=== PATIENT | female | born 1995 | race Hispanic/Latino ===

== ENCOUNTER 2022-09-29 23:25 | Emergency (ER) | payer OTHER, SELFPAY ==
--- OUTSIDE RECORDS SUMMARY | 2022-09-29 23:33 | XMS REPORT | Continuity of Care Document ---
:1995 Author Organization [facility] t Address [address] [place] [address] [place] [id number] Care Team Providers Name Role Phone No, Pcp [facility] Primary Care Physician Unavailable ALICE CHUN Attending Clinician Unavailable Ramsey Wilhelm DO Attending Clinician JAMIL MCCLAIN Attending Clinician Unavailable Jamil Mcclain MD Attending Clinician Doctor Unassigned, [place] Attending Clinician Unavailable Alice Chun PA-C Attending Clinician Chapito Styles MD Attending Clinician 1, [facility] Attending Clinician Unavailable Lab, [facility] Attending Clinician Unavailable Sherlyn Bernabe Attending Clinician SHERLYN HOBBS Attending Clinician Unavailable MONIQUE POZO Attending Clinician Unavailable CHAPITO STYLES Attending Clinician Unavailable CHAPITO STYLES Attending Clinician Unavailable MARK ANTHONY LANGFORD Attending Clinician Unavailable CHAPITO STYLES Admitting Clinician Unavailable Jamil Mcclain MD Admitting Clinician Chapito Styles MD Admitting Clinician JAMIL MCCLAIN Admitting Clinician Unavailable TERESA JACOBS Admitting Clinician Unavailable Payers Payer Name Policy Type Policy Number Effective Date Expiration Date Nicolás ARAUZS [id number] 2019 HEALTH 00:00:00 Problems Condition Condition Condition Status Onset Resolution Last Treating Co mments Source Name Details Category Date Date Treatment Clinician Date Liveborn Liveborn Disease Active Unive rs infant, of , of 8-15 it y of ortiz or[place]iz 00:[place] , , 00 [place] born in born in [facility] hospital by vaginal by vaginal delivery delivery Encounter Encounter Disease Active Uni vers for for 8-14 ity of elective elective 00:00: [place] induction induction 00 [facility] of labor of labor Sesser Elevated Elevated Disease Active Unive rs blood blood 8-12 ity of pressure pressure 00:00: [place] reading reading 00 [facility] without without Branch diagnosis diagnosis of of hypertensi hypertensi on on Gestationa Gestationa Disease Active U nivers l l 8-12 ity of hypertensi hypertensi 00:[place] on, third on, third 00 [facility] trimester trimester Bran ch Obesity Obesity Disease Active Univers (BMI (BMI 6-24 ity of 30-39.9) 30-39.9) 00:00: [place] 00 [facility] Supervisio Supervisio Disease Active U nivers n of other n of other 6-24 it y of normal normal 00:00: [place] 00 [facility] Disease [facility] [address] Liveborn Liveborn Disease Active Overview: Un aaron infant by by 3-18 IOL; ity of vaginal vaginal 00:00: 39w4d; [place] delivery delivery 00 ; Medica l intact Sesser Anemia, Anemia, Disease Active Univers 3-18 it y of 00:00: [address] 39 weeks 39 weeks Disease Active Unive rs gestation gestation 3-17 ity of of of 00:00: [place] 00 [facility] Multiparit Multiparit Disease Active U nivers y y 8- ity of 00:00: [address] ASCUS with ASCUS with Disease Active Overview : Univers positive positive 01-09 Repeat 1 ity of high risk high risk 00:00: year Cullen mcarthur HPV HPV [facility] Obesity Obesity Disease Active Overview: Univ ers complicati complicati 01-09 ICD10 it y of ng ng 00:00: Diagnosis [place] , , 00 Term Me dical childbirth childbirth [place] [facility] , or , or Utility puerperium puerperium , , antepartum antepartum Supervisio Supervisio Disease Active Overview : Univers n of other n of other 8-27 ICD10 it y of high-risk high-risk 00:00: [place] 00 Term Medi casimiro [place] [facility] Utility Screening Screening Disease Active Uni vers for STD for STD 2-18 ity of (sexually (sexually 00:00[place] transmitte transmitte 00 Me dical d disease) d disease) Br anch Allergies, Adverse Reactions, Alerts Allergy Allergy Status Severity Reaction(s) Onset Inactive Treating Comm ents Source Name Type Date Date Clinician NO KNOWN Drug Active Univers ALLERGIE Class ity of S [facility] NO KNOWN Allergy Active [facility] Social History Social Habit Start Date Stop Date Quantity Comments Source ASSERTION 2019-04-13 [facility] 00:00:00 [facility] Exposure to Not sure [facility] SARS-CoV-2 [place] Medical (event) Branch Alcohol intake 2020-06-02 2020-06-[address] [facility] es 00:00:00 00:00:00 non-drinker of Medical Ce nter alcohol (finding) Tobacco use and 2020-02-14 2020-02-14 Never used Universit y of exposure 00:00:00 00:00:00 [place] [facility] History [facility] Food 2019-12-28 2019-12-28 1 Univers ity of Worry 00:00:00 00:00:00 [place] [facility] History [facility] Food 2019-12-28 2019-12-28 1 Univers ity of Scarcity 00:00:00 00:00:00 [place] [facility] History SDFL 2019-12-28 2019-12-28 2 University o f Transport Med 00:00:00 00:00:00 [place] Medic al Branch History [facility] 2019-12-28 2019-12-28 2 University o f Transport Non-Med 00:00:00 00:00:00 [place] M edical Branch Sex Assigned At [address] [facility] 00:00:00 00:[facility]:00 [facility] Smoking Status Start Date Stop Date Source Never smoker [facility] Medications Ordered Filled Start Stop Current Ordering Indication Dosage Frequency Signature Comments Components Source Medication Medication Date Date Medication? Clinician (SIG) Name Name levonorgest 2019-05 2020- No 1{devic Un aaron reL 0- 10- e} ity of (MIRENA) 18:00: 16:47 [place] IUD 1 00 :00 [employer] Branch levonorgest 2019-05 2020- No 1{devic 1 Device, Univers reL 0- 10- e} Intrauteri ity of (MIRENA) 18:00: 16:47 [place], ONCE, [place] IUD 1 00 :00 1 dose, [employer] Екатерина Branch 02/14/20 at 1300, Routine levonorgest 2019-05 2020- No 1{devic Un a[place] reL 0- 10- e} ity of (MIRENA) 18:00: 16:47 [place] IUD 1 00 :00 [employer] Branch levonorgest 2019-05 2020- No 1{devic 1 Device, Univers reL 0- 10- e} Intrauteri ity of (MIRENA) 18:00: 16:47 ne, ONCE, [place] IUD 1 00 :00 1 dose, [employer] Екатерина Branch 02/14/20 at 1300, Routine 2019-0 Yes [id number] 1{tbl} Take 1 U nivers vitamin 8-20 tablet by ity of w/FA tablet 00:00: mouth [place] 00 daily. Medical Branch 2019-0 Yes [id number] 1{tbl} Take 1 U nivers vitamin 8-20 tablet by ity of w/FA tablet 00:00: mouth [place] 00 daily. Medical Branch 2020-0 Yes [id number] 1{tbl} Take 1 U nivers vitamin 8-20 tablet by ity of w/FA tablet 00:00: mouth [place] 00 daily. Medical Branch 2020-0 Yes [id number] 1{tbl} Take 1 U nivers vitamin 8-20 tablet by ity of w/FA tablet 00:00: mouth [place] 00 daily. Medical Branch 2020-0 Yes [id number] 1{tbl} Take 1 U nivers vitamin 8-20 tablet by ity of w/FA tablet 00:00: mouth [place] 00 daily. Medical Sesser 2020-0 Yes [id number] 1{tbl} Take 1 U nivers vitamin 8-20 tablet by ity of w/FA tablet 00:00: mouth [place] 00 daily. Medical Branch 2020-0 Yes [id number] 1{tbl} Take 1 U nivers vitamin 8-20 tablet by ity of w/FA tablet 00:00: mouth [place] 00 daily. Medical Branch 2020-0 Yes [id number] 1{tbl} Take 1 U nivers vitamin 8-15 tablet by ity of w/FA tablet 00:00: mouth [place] 00 daily. Medical Branch docusate 2020-0 Yes [id number] 240mg Take 1 Un aaron calcium 240 8-15 capsule by it y of mg capsule 00:00: mouth once [place] 00 daily as Medical needed for Branch Constipati on. ferrous 2020-0 Yes [id number] 325mg Take 1 Uni vers sulfate 325 8-15 tablet by ity of mg (65 mg 00:00: mouth 2 [place] iron) 00 (two) Medical tablet times Branch daily. ibuprofen 2019-0 Yes [id number] 600mg Take 1 U nivers 600 mg 8-15 tablet by ity of tablet 00:00: mouth [place] 00 every 6 Medical (six) Branch hours as needed (Pain). Take with food or milk. docusate 2019-0 Yes [id number] 240mg Take 1 Un a[place] calcium 240 8-15 capsule by it y of mg capsule 00:00: mouth once [place] 00 daily as Medical needed for Branch Constipati on. ferrous 2019-0 Yes [id number] 325mg Take 1 Uni vers sulfate 325 8-15 tablet by ity of mg (65 mg 00:00: mouth 2 [place] iron) 00 (two) Medical tablet times Branch daily. ibuprofen 2019-0 Yes [id number] 600mg Take 1 U nivers 600 mg 8-15 tablet by ity of tablet 00:00: mouth [place] 00 every 6 Medical (six) Branch hours as needed (Pain). Take with food or milk. docusate 2019-0 2020- No [id number] 240mg Take 1 U nivers calcium 240 8-15 09-15 capsule by i ty of mg capsule 00:00: 00:00 mouth once [place] 00 :00 daily as Medical needed for Branch Constipati on. ferrous 2019-0 2020- No [id number] 325mg Take 1 Un a[place] sulfate 325 8-15 09-15 tablet by it y of mg (65 mg 00:00: 00:00 mouth 2 [place] iron) 00 :00 (two) Medical tablet times Branch daily. ibuprofen 2019-0 2020- No [id number] 600mg Take 1 Univers 600 mg 8-15 tablet by ity of tablet 00:00: 00:00 mouth [place] 00 :00 every 6 Medical (six) Branch hours as needed (Pain). Take with food or milk. 2019-0 2020- No [id number] 1{tbl} Take 1 Univers vitamin 815 08-20 tablet by ity of w/FA tablet 00:00: 00:00 [place] 00 :00 daily. Medical Branch rho(D) 2019-0 Yes 300ug 300 mcg, Univer s immune 8-14 Intramuscu ity of globulin 21:54: lar, ONCE, [place] (RHOGAM) 06 For 1 Medical syringe 300 dose, Branch mcg Conditiona l, Routine HYDROcodone 2019-0 Yes 1{tbl} 1 tablet, Univers -acetaminop 814 Oral, ity of hen (NORCO 21:53: Q6HPRN, [place] 5) 5-325 mg 49 Starting Medi casimiro tablet 1 Fri Branch tablet 12/28/19 at 1653, Until Discontinu ed, Routine, Pain (scale 7-10) ibuprofen 2019-0 Yes 600mg 600 mg, Univ ers (IBU) 8-14 Oral, ity of tablet 600 21:53: Q6HPRN, [place] mg 49 Starting Medical Fri Branch 12/28/19 at 1653, Until Discontinu ed, Routine, Pain (scale 4-6) acetaminoph 2019-0 Yes 650mg 650 mg, Un aaron en 8-14 Oral, ity of (TYLENOL) 21:53: Q6HPRN, [place] tablet 650 49 Starting Medic al mg Fri Branch 12/28/19 at 1653, Until Discontinu ed, Routine, Pain (scale 1-3) diphenhydrA 2020-0 Yes 25mg 25 mg, Univ ers MINE 8-14 Oral, ity of (BENADRYL) 21:53: Q6HPRN, [place] tablet 25 49 Starting Medica l mg Fri Branch 12/28/19 at 1653, Until Discontinu ed, Routine, Sleep, Itching ondansetron 2020-0 Yes 4mg 4 mg, Slow Univers (ZOFRAN 12-27 IV Push, ity of (PF)) 21:53: Q8HPRN, [place] injection 4 49 Starting Medi casimiro mg Fri Branch 12/28/19 at 1653, Until Discontinu ed, Routine, Nausea and Vomiting (N/V) simethicone 2020-0 Yes 160mg 160 mg, Un aaron (GAS RELIEF 12-27 Oral, ity of (SIMETHICON 21:53: PC+HSPRN, [place] E)) 49 Starting Medical chewable Fri Branch tablet 160 12/28/19 at mg 1653, Until Discontinu ed, Routine, Gas docusate 2020-0 Yes 240mg 240 mg, Unive rs calcium 8- Oral, ity of (SURFAK) 21:53: QDAILYPRN, [place] capsule 240 49 Starting Medi casimiro mg Fri Branch 12/28/19 at 1653, Until Discontinu ed, Routine, Constipati on magnesium 2020-0 Yes 30mL 30 mL, Univer s hydroxide 12-27 Oral, ity of (MILK OF 21:53: QDAILYPRN, [place] MAGNESIA) 49 Starting Medica l 400 mg/5 mL Fri Branch suspension 12/28/19 at 30 mL 3, Until Discontinu ed, Routine, Constipati on benzocaine- 2020-0 Yes Topical, Un aaron menthol 12-27 PRN, ity of (DERMOPLAST 21:53: [place] 20-0.5 % 49 Tue Medical topical 12/28/19 at Branch spray 1653, Until Discontinu ed, Routine, Perineum discomfort LR 1000 mL 0 2020- No at 125 Univ ers + oxytocin 12-2714 mL/hr, IV ity of 20 units IV 16:15: 17:39 Infusion, [place] Solution 00 :00 ONCE, 1 Medical dose, [facility] Branch 12/28/19 at 1115, Routine FENTanyl PF 2019-0 2020- No 100ug 100 mcg, Univers (SUBLIMAZE 12-27 Slow IV ity o f (PF)) 12:31: 21:54 Push, [place] injection 01 :07 Q1HPRN, Medical 100 mcg Starting Branch 12/28/19 at 0731, Until 12/28/19 at 1654, Routine, contractio n pain without an epidural and SVE < 8 cm and Cat I strip LR 1000 mL 2020-0 2020- No 2mU/min at 6-120 Univers + oxytocin 12-27 08-14 mL/hr, IV ity of 20 units IV 10:28: 21:54 Infusion, [place] Solution 38 :07 TITRATE, Medical Starting Branch Tue12/28/19 at 0528, Until Tue12/28/19 at 1654, YORDAN D5W-LR IV 2020-0 2020- No 1000mL at 125 Uni vers infusion 12-27 08-14 mL/hr, IV ity o f 1,000 mL 09:30: 21:54 Infusion, [place] 00 :07 CONTINUOUS Medical , Starting Branch Tue12/28/19 at 0430, Until Tue12/28/19 at 1654, Routine famotidine 2020-0 Yes [id number] 20mg Take 1 Univers 20 mg 7-13 tablet by ity of tablet 00:00: mouth [address] [place] [address] (two) Medical times Branch daily. hydrOXYzine 2020-0 Yes [id number] 25mg Take 1 Univers 25 mg 7-13 tablet by ity of tablet 00:00: mouth [place] 00 every 6 Medical (six) Branch hours as needed for Itching. famotidine 2020-0 Yes [id number] 20mg Take 1 Univers 20 mg 7-13 tablet by ity of tablet 00:00: mouth [address] [place] [address] (two) Medical times Branch daily. hydrOXYzine 2020-0 Yes [id number] 25mg Take 1 Univers 25 mg 7-13 tablet by ity of tablet 00:00: mouth [place] 00 every 6 Medical (six) Branch hours as needed for Itching. famotidine 2020-0 Yes [id number] 20mg Take 1 Univers 20 mg 7-13 tablet by ity of tablet 00:00: mouth 2 [place] (two) Medical times Branch daily. hydrOXYzine 2020-0 Yes [id number] 25mg Take 1 Univers 25 mg 7-13 tablet by ity of tablet 00:00: mouth [place] 00 every 6 Medical (six) Branch hours as needed for Itching. famotidine 2020-0 Yes [id number] 20mg Take 1 Univers 20 mg 7-13 tablet by ity of tablet 00:00: mouth 2 [place] [address] (two) Medical times Branch daily. hydrOXYzine 2020-0 Yes [id number] 25mg Take 1 Univers 25 mg 7-13 tablet by ity of tablet 00:00: mouth [place] 00 every 6 Medical (six) Branch hours as needed for Itching. famotidine 2020-0 Yes [id number] 20mg Take 1 Univers 20 mg 7-13 tablet by ity of tablet 00:00: mouth 2 [place] 00 (two) Medical times Branch daily. hydrOXYzine 2020-0 Yes [id number] 25mg Take 1 Univers 25 mg 7-13 tablet by ity of tablet 00:00: mouth [place] 00 every 6 Medical (six) Branch hours as needed for Itching. famotidine 2020-0 Yes [id number] 20mg Take 1 Univers 20 mg 7-13 tablet by ity of tablet 00:00: mouth 2 [place] 00 (two) Medical times Branch daily. hydrOXYzine 2020-0 Yes [id number] 25mg Take 1 Univers 25 mg 7-13 tablet by ity of tablet 00:00: mouth [place] 00 every 6 Medical (six) Branch hours as needed for Itching. famotidine 2020-0 Yes [id number] 20mg Take 1 Univers 20 mg 7-13 tablet by ity of tablet 00:00: mouth 2 [place] 00 (two) Medical times Branch daily. hydrOXYzine 2020-0 Yes [id number] 25mg Take 1 Univers 25 mg 7-13 tablet by ity of tablet 00:00: mouth [place] 00 every 6 Medical (six) Branch hours as needed for Itching. famotidine 2020-0 2020- No [id number] 20mg Take 1 Univers 20 mg 7-13 08-15 tablet by ity of tablet 00:00: 00:00 mouth 2 [place] 00 :00 (two) Medical times Branch daily. hydrOXYzine 2020-0 2020- No [id number] 25mg Take 1 Univers 25 mg 7-13 08-15 tablet by ity of tablet 00:00: 00:00 mouth [place] 00 :00 every 6 Medical (six) Branch hours as needed for Itching. 2017-0 Yes 1{tbl} QD Take 1 [facility]FERR 2-18 tablet by Jonah JACKSON FUM/FA 11:31: mouth Medica l ( 52 daily. Center VITAMIN W/IRON-CHARLY TE) 27 mg iron- 800 mcg Tab docusate 2015-0 Yes 240mg Take 1 Cap Un aaron calcium 3-19 by mouth ity of (SURFAK) 00:00: once daily [place] 240 mg 00 as needed Medical capsule for Branch Constipati on. ferrous 2016-0 Yes 325mg Take 1 Tab Uni vers sulfate 325 3-19 by mouth 3 it y of mg (65 mg 00:00: (three) [place] iron) 00 times Medical tablet daily with Branch meals. docusate 2016-0 Yes 240mg Take 1 Cap [place] calcium 3-19 by mouth ity of (SURFAK) 00:00: once daily [place] 240 mg 00 as needed Medical capsule for Branch Constipati on. ferrous 2016-0 Yes 325mg Take 1 Tab Uni vers sulfate 325 3-19 by mouth 3 it y of mg (65 mg 00:00: (three) [place] iron) 00 times Medical tablet daily with Branch meals. docusate 2016-0 Yes 240mg Take 1 Cap Un a[place] calcium 3-19 by mouth ity of (SURFAK) 00:00: once daily [place] 240 mg 00 as needed Medical capsule for Branch Constipati on. ferrous 2016-0 Yes 325mg Take 1 Tab Uni vers sulfate 325 3-19 by mouth 3 it y of mg (65 mg 00:00: (three) [place] iron) 00 times Medical tablet daily with Branch meals. docusate 2016-0 Yes 240mg Take 1 Cap [place] calcium 3-19 by mouth ity of (SURFAK) 00:00: once daily [place] 240 mg 00 as needed Medical capsule for Branch Constipati on. ferrous 2016-0 Yes 325mg Take 1 Tab Uni vers sulfate 325 3-19 by mouth 3 it y of mg (65 mg 00:00: (three) [place] iron) 00 times Medical tablet daily with Branch meals. docusate 2016-0 Yes 240mg Take 1 Cap [place] a[place] calcium 3-19 by mouth ity of (SURFAK) 00:00: once daily [place] 240 mg 00 as needed Medical capsule for Branch Constipati on. docusate 2016-0 Yes 240mg Take 1 Cap Un a[place] calcium 3-19 by mouth ity of (SURFAK) 00:00: once daily [place] 240 mg 00 as needed Medical capsule for Branch Constipati on. ferrous 2016-0 Yes 325mg Take 1 Tab Uni vers sulfate 325 3-19 by mouth 3 it y of mg (65 mg 00:00: (three) [place] iron) 00 times Medical tablet daily with Branch meals. ferrous 2016-0 Yes 325mg Take 1 Tab Uni vers sulfate 325 3-19 by mouth 3 it y of mg (65 mg 00:00: (three) [place] iron) 00 times Medical tablet daily with Branch meals. docusate 2016-0 Yes 240mg Take 1 Cap [place] calcium 3-19 by mouth ity of (SURFAK) 00:00: once daily [place] 240 mg 00 as needed Medical capsule for Branch Constipati on. ibuprofen 2016-0 Yes 600mg Take 1 Tab U nivers (MOTRIN) 3-19 by mouth ity of 600 mg 00:00: every 6 [place] tablet 00 (six) Medical hours as Branch needed for Pain (scale 4-6). Take with food or milk. ferrous 2016-0 Yes 325mg Take 1 Tab Uni vers sulfate 325 3-19 by mouth 3 it y of mg (65 mg 00:00: (three) [place] iron) 00 times Medical tablet daily with Branch meals. docusate 2016-0 Yes 240mg Take 1 Cap [place] calcium 3-19 by mouth ity of (SURFAK) 00:00: once daily [place] 240 mg 00 as needed Medical capsule for Branch Constipati on. ferrous 2016-0 Yes 325mg Take 1 Tab Uni vers sulfate 325 3-19 by mouth 3 it y of mg (65 mg 00:00: (three) [place] iron) 00 times Medical tablet daily with Branch meals. docusate 2016-0 Yes 240mg Take 1 Cap Un a[place] calcium 3-19 by mouth ity of (SURFAK) 00:00: once daily [place] 240 mg 00 as needed Medical capsule for Branch Constipati on. ferrous 2016-0 Yes 325mg Take 1 Tab Uni vers sulfate 325 3-19 by mouth 3 it y of mg (65 mg 00:00: (three) [place] iron) 00 times Medical tablet daily with Branch meals. docusate 2016-0 Yes 240mg Take 1 Cap Un a[place] calcium 3-19 by mouth ity of (SURFAK) 00:00: once daily [place] 240 mg 00 as needed Medical capsule for Branch Constipati on. ferrous 2016-0 Yes 325mg Take 1 Tab Uni vers sulfate 325 3-19 by mouth 3 it y of mg (65 mg 00:00: (three) [place] iron) 00 times Medical tablet daily with Branch meals. docusate 2016-0 Yes 240mg Take 1 Cap Un a[place] calcium 3-19 by mouth ity of (SURFAK) 00:00: once daily [place] 240 mg 00 as needed Medical capsule for Branch Constipati on. ferrous 2016-0 Yes 325mg Take 1 Tab Uni vers sulfate 325 3-19 by mouth 3 it y of mg (65 mg 00:00: (three) [place] iron) 00 times Medical tablet daily with Branch meals. docusate 2016-0 Yes 240mg Take 1 Cap Un a[place] calcium 3-19 by mouth ity of (SURFAK) 00:00: once daily [place] 240 mg 00 as needed Medical capsule for Branch Constipati on. ferrous 2016-0 Yes 325mg Take 1 Tab Uni vers sulfate 325 3-19 by mouth 3 it y of mg (65 mg 00:00: (three) [place] iron) 00 times Medical tablet daily with Branch meals. docusate 2016-0 Yes 240mg Take 1 Cap Un a[place] calcium 3-19 by mouth ity of (SURFAK) 00:00: once daily [place] 240 mg 00 as needed Medical capsule for Branch Constipati on. ferrous 2016-0 Yes 325mg Take 1 Tab Uni vers sulfate 325 3-19 by mouth 3 it y of mg (65 mg 00:00: (three) [place] iron) 00 times Medical tablet daily with Branch meals. docusate 2016-0 Yes 240mg Take 1 Cap Un a[place] calcium 3-19 by mouth ity of (SURFAK) 00:00: once daily [place] 240 mg 00 as needed Medical capsule for Branch Constipati on. ferrous 2016-0 Yes 325mg Take 1 Tab Uni vers sulfate 325 3-19 by mouth 3 it y of mg (65 mg 00:00: (three) [place] iron) 00 times Medical tablet daily with Branch meals. docusate 2016-0 Yes 240mg Take 1 Cap Un a[place] calcium 3-19 by mouth ity of (SURFAK) 00:00: once daily [place] 240 mg 00 as needed Medical capsule for Branch Constipati on. ferrous 2016-0 Yes 325mg Take 1 Tab Uni vers sulfate 325 3-19 by mouth 3 it y of mg (65 mg 00:00: (three) [place] iron) 00 times Medical tablet daily with Branch meals. docusate 2016-0 Yes 240mg Take 1 Cap Un a[place] calcium 3-19 by mouth ity of (SURFAK) 00:00: once daily [place] 240 mg 00 as needed Medical capsule for Branch Constipati on. ferrous Yes 325mg Take 1 Tab Uni vers sulfate 325 3-19 by mouth 3 it y of mg (65 mg 00:00: (three) [place] iron) 00 times Medical tablet daily with Branch meals. docusate 2020- No 240mg Take 1 Cap U nivers calcium 3-19 08-15 by mouth ity of (SURFAK) 00:00: 00:00 once daily [place] 240 mg 00 :00 as needed Medical capsule for Branch Constipati on. ferrous 2019- No 325mg Take 1 Tab Un aaron sulfate 325 3-19 08-15 by mouth 3 i ty of mg (65 mg 00:00: 00:00 (three) [place] iron) 00 :00 times Medical tablet daily with Branch meals. ibuprofen 2019- No 600mg Take 1 Tab Univers (MOTRIN) 3-19 06-24 by mouth ity of 600 mg 00:00: 00:00 every 6 [place] tablet 00 :00 (six) Medical hours as Branch needed for Pain (scale 4-6). Take with food or milk. Yes 1{tbl} Take 1 Tab U nivers vitamin 7-10 by mouth ity of w/FA 00:00: daily. [place] (PRENATABS 00 Medical RX) tablet Branch Yes 1{tbl} Take 1 Tab U nivers vitamin 7-10 by mouth ity of w/FA 00:00: daily. [place] (PRENATABS 00 Medical RX) tablet Branch Yes 1{tbl} Take 1 Tab U nivers vitamin 7-10 by mouth ity of w/FA 00:00: daily. [place] (PRENATABS 00 Medical RX) tablet Branch Yes 1{tbl} Take 1 Tab U nivers vitamin 7-10 by mouth ity of w/FA 00:00: daily. [place] (PRENATABS 00 Medical RX) tablet Branch Yes 1{tbl} Take 1 Tab U nivers vitamin 7-10 by mouth ity of w/FA 00:00: daily. [place] (PRENATABS 00 Medical RX) tablet Branch Yes 1{tbl} Take 1 Tab U nivers vitamin 7-10 by mouth ity of w/FA 00:00: daily. [place] (PRENATABS 00 Medical RX) tablet Branch Yes 1{tbl} Take 1 Tab U nivers vitamin 7-10 by mouth ity of w/FA 00:00: daily. [place] (PRENATABS 00 Medical RX) tablet Branch Yes 1{tbl} Take 1 Tab U nivers vitamin 7-10 by mouth ity of w/FA 00:00: daily. [place] (PRENATABS 00 Medical RX) tablet Branch Yes 1{tbl} Take 1 Tab U nivers vitamin 7-10 by mouth ity of w/FA 00:00: daily. [place] (PRENATABS 00 Medical RX) tablet Branch Yes 1{tbl} Take 1 Tab U nivers vitamin 7-10 by mouth ity of w/FA 00:00: daily. [place] (PRENATABS 00 Medical RX) tablet Branch Yes 1{tbl} Take 1 Tab U nivers vitamin 7-10 by mouth ity of w/FA 00:00: daily. [place] (PRENATABS 00 Medical RX) tablet Branch Yes 1{tbl} Take 1 Tab U nivers vitamin 7-10 by mouth ity of w/FA 00:00: daily. [place] (PRENATABS 00 Medical RX) tablet Branch Yes 1{tbl} Take 1 Tab U nivers vitamin 7-10 by mouth ity of w/FA 00:00: daily. [place] (PRENATABS 00 Medical RX) tablet Branch Yes 1{tbl} Take 1 Tab U nivers vitamin 7-10 by mouth ity of w/FA 00:00: daily. [place] (PRENATABS 00 Medical RX) tablet Branch Yes 1{tbl} Take 1 Tab U nivers vitamin 7-10 by mouth ity of w/FA 00:00: daily. [place] (PRENATABS 00 Medical RX) tablet Branch Yes 1{tbl} Take 1 Tab U nivers vitamin 7-10 by mouth ity of w/FA 00:00: daily. [place] (PRENATABS 00 Medical RX) tablet Branch 2020- No 1{tbl} Take 1 Tab Univers vitamin 7-10 08-15 by mouth ity of w/FA 00:00: 00:00 daily. [place] (PRENATABS 00 :00 Medical RX) tablet Branch Immunizations Ordered Filled Immunization Date Status Comments [facility] e Immunization Name Name TDAP 2015-07-16 Completed University of 00:00:00 [place] [facility] TDAP 2015-07-16 Completed University of 00:00:00 [place] [facility] TDAP 2015-07-16 Completed University of 00:00:00 [place] [facility] TDAP 2015-07-16 Completed University of 00:00:00 [place] [facility] TDAP 2015-07-16 Completed University of 00:00:00 [place] [facility] TDAP 2015-07-16 Completed University of 00:00:00 [facility] TDAP 2015-07-16 Completed University of 00:00:00 [facility] TDAP 2015-07-16 Completed University of 00:00:00 [facility] TDAP 2015-07-16 Completed University of 00:00:00 [facility] TDAP 2015-07-16 Completed University of 00:00:00 [facility] TDAP 2015-07-16 Completed University of 00:00:00 [facility] TDAP 2015-07-16 Completed University of 00:00:00 [facility] TDAP 2015-07-16 Completed University of 00:00:00 [facility] TDAP 2015-07-16 Completed University of 00:00:00 [facility] TDAP 2015-07-16 Completed University of 00:00:00 [facility] TDAP 2015-07-16 Completed University of 00:00:00 [facility] TDAP 2015-07-16 Completed University of 00:00:00 [facility] TDAP 2015-07-16 Completed University of 00:00:00 [facility] TDAP 2015-07-16 Completed University of 00:00:00 [facility] TDAP 2015-07-16 Completed University of 00:00:00 [facility] TDAP 2015-07-16 Completed University of 00:00:00 [facility] TDAP 2015-07-16 Completed University of 00:00:00 [facility] TDAP 2015-07-16 Completed University of 00:00:00 [facility] TDAP 2015-07-16 Completed University of 00:00:00 [facility] Td 2007-12-27 Completed University of 00:00:00 [facility] Td 2007-12-27 Completed University of 00:00:00 [facility] Td 2007-12-27 Completed University of 00:00:00 [facility] Td 2007-12-27 Completed University of 00:00:00 [facility] Td 2007-12-27 Completed University of 00:00:00 [facility] Td 2007-12-27 Completed University of 00:00:00 [facility] Td 2007-12-27 Completed University of 00:00:00 [facility] Td 2007-12-27 Completed University of 00:00:00 [facility] Td 2007-12-27 Completed University of 00:00:00 [facility] Td 2007-12-27 Completed University of 00:00:00 [facility] Td 2007-12-27 Completed University of 00:00:00 [facility] Td 2007-12-27 Completed University of 00:00:00 [facility] Td 2007-12-27 Completed University of 00:00:00 [facility] Td 2007-12-27 Completed University of 00:00:00 [facility] Td 2007-12-27 Completed University of 00:00:00 [facility] Td 2007-12-27 Completed University of 00:00:00 [facility] Td 2007-12-27 Completed University of 00:00:00 [facility] Td 2007-12-27 Completed University of 00:00:00 [facility] Td 2007-12-27 Completed University of 00:00:00 [facility] Td 2007-12-27 Completed University of 00:00:00 [facility] Td 2007-12-27 Completed University of 00:00:00 [facility] Td 2007-12-27 Completed University of 00:00:00 [facility] Td 2007-12-27 Completed University of 00:00:00 [facility] Td 2007-12-27 Completed University of 00:00:00 [facility] Vital Signs Vital Name Observation Time Observation Value Comments Source Systolic blood 2020-02-14 15:55:00 121 mm[Hg] Univer sity of pressure [facility] Diastolic blood 2020-02-14 15:55:00 79 mm[Hg] Unive rsity of pressure [facility] Heart rate 2020-02-14 15:55:00 66 /min Universi ty [facility] Body temperature 2020-02-14 15:55:00 36.67 [place] Univ ersity of [facility] Respiratory rate 2020-02-14 15:55:00 18 /min [facility] Body height 2020-02-14 15:55:00 152.4 cm Universi ty of [facility] [place] [facility] Body weight 2020-02-14 15:55:00 73.936 kg Universi ty of [facility] BMI 2020-02-14 15:55:00 31.83 kg/m2 Universi ty of [facility] Systolic blood 2020-01-29 21:58:00 109 mm[Hg] Univer sity of pressure [facility] Diastolic blood 2020-01-29 21:58:00 71 mm[Hg] Unive rsity of pressure [facility] Heart rate 2020-01-29 21:58:00 78 /min Universi ty of [facility] Body temperature 2020-01-29 21:58:00 36.89 [place] Univ ersity of [facility] Respiratory rate 2020-01-29 21:58:00 18 /min Univ ersity of [facility] Body height 2020-01-29 21:58:00 152.4 cm Universi ty of [facility] Body weight 2020-01-29 21:58:00 73.483 kg Universi ty of [facility] BMI 2020-01-29 21:58:00 31.64 kg/m2 Universi ty of [facility] Systolic blood 2019-12-29 14:45:00 140 mm[Hg] Univer sity of pressure [facility] Diastolic blood 2019-12-29 14:45:00 86 mm[Hg] Unive rsity of pressure [facility] Heart rate 2019-12-29 14:45:00 71 /min Universi ty of [facility] Body temperature 2019-12-29 13:30:00 36.67 [place] Univ ersity of [facility] Respiratory rate 2019-12-29 13:30:00 18 /min Univ ersity of [facility] Oxygen saturation in 2019-12-29 09:15:00 99 /min [facility] Arterial blood by [facility] Pulse oximetry Branch Body height 2019-12-28 09:00:00 152.4 cm Universi ty of [facility] Body weight 2019-12-28 09:00:00 82.192 kg Universi ty of [facility] BMI 2019-12-28 09:00:00 35.39 kg/m2 Universi ty of [facility] Systolic blood 2019-12-26 21:30:00 136 mm[Hg] Univer sity of pressure [facility] Diastolic blood 2019-12-26 21:30:00 77 mm[Hg] Unive rsity of pressure [facility] Heart rate 2019-12-26 21:30:00 69 /min Universi ty of [facility] Respiratory rate 2019-12-26 21:30:00 18 /min Univ ersity of [facility] Oxygen saturation in 2019-12-26 21:30:00 100 /min University of Arterial blood by [facility] Pulse oximetry Branch Body temperature 2019-12-26 20:25:00 36.89 [place] Univ ersity of [facility] Body height 2019-12-26 20:25:00 152.4 cm Universi ty of [facility] Body weight 2019-12-26 20:25:00 82.555 kg Universi ty of [facility] BMI 2019-12-26 20:25:00 35.54 kg/m2 Universi ty of [facility] Systolic blood 2019-12-26 19:12:00 140 mm[Hg] Univer sity of pressure [facility] Diastolic blood 2019-12-26 19:12:00 91 mm[Hg] Unive rsity of pressure [facility] Heart rate 2019-12-26 18:44:00 73 /min Universi ty of [facility] Body temperature 2019-12-26 18:44:00 36.89 [place] Univ ersity of [facility] Respiratory rate 2019-12-26 18:44:00 18 /min Univ ersity of [facility] Body height 2019-12-26 18:44:00 152.4 cm Universi ty of [facility] Body weight 2019-12-26 18:44:00 83.008 kg Universi ty of [facility] BMI 2019-12-26 18:44:00 35.74 kg/m2 Universi ty [facility] Heart rate 2019-12-04 17:00:00 85 /min Universi ty of [facility] Oxygen saturation in 2019-12-04 17:00:00 100 /min University of Arterial blood by [facility] Pulse oximetry Branch Systolic blood 2019-12-04 16:41:00 134 mm[Hg] Univer sity of pressure [facility] Diastolic blood 2019-12-04 16:41:00 90 mm[Hg] Unive rsity of pressure [facility] Respiratory rate 2019-12-04 16:41:00 18 /min Univ ersity of [facility] Body height 2019-12-04 16:41:00 152.4 cm Universi ty of [facility] Body weight 2019-12-04 16:41:00 78.654 kg Universi ty of [facility] BMI 2019-12-04 16:41:00 33.86 kg/m2 Universi ty of [facility] Systolic blood 2019-11-26 13:49:00 131 mm[Hg] Univer sity of pressure [facility] Diastolic blood 2019-11-26 13:49:00 88 mm[Hg] Unive rsity of pressure [facility] Heart rate 2019-11-26 13:49:00 66 /min Universi ty of [facility] Body temperature 2019-11-26 13:49:00 36.72 [place] Univ ersity of [facility] Respiratory rate 2019-11-26 13:49:00 18 /min Univ ersity of [facility] Body height 2019-11-26 13:49:00 152.4 cm Universi ty of [facility] Body weight 2019-11-26 13:49:00 78.926 kg Universi ty of [facility] BMI 2019-11-26 13:49:00 33.98 kg/m2 Universi ty of [facility] Systolic blood 2019-11-07 15:32:00 125 mm[Hg] Univer sity of pressure [facility] Diastolic blood 2019-11-07 15:32:00 87 mm[Hg] Unive rsity of pressure [facility] Heart rate 2019-11-07 15:32:00 104 /min Universi ty of [facility] Body temperature 2019-11-07 15:32:00 36.72 [place] Univ ersity of [facility] Respiratory rate 2019-11-07 15:32:00 18 /min Univ ersity of [facility] Body height 2019-11-07 15:32:00 152.4 cm Universi ty of [facility] Body weight 2019-11-07 15:32:00 79.017 kg Universi ty of [facility] BMI 2019-11-07 15:32:00 34.02 kg/m2 Universi ty of [facility] Systolic blood 2019-11-05 01:45:00 131 mm[Hg] Univer sity of pressure [facility] Diastolic blood 2019-11-05 01:45:00 76 mm[Hg] Unive rsity of pressure [facility] Heart rate 2019-11-05 01:45:00 89 /min [facility] Oxygen saturation in 2019-11-05 01:40:00 100 /min [facility] Arterial blood by [facility] Pulse oximetry [place] Body temperature 2019-11-05 01:00:00 37.11 [place] [facility] Respiratory rate 2019-11-05 01:00:00 18 /min [facility] Body height 2019-11-05 01:00:00 152.4 cm [facility] Body weight 2019-11-05 01:00:00 79.833 kg [facility] BMI 2019-11-05 01:00:00 34.37 kg/m2 [facility] Procedures Procedure Date / Time Performing Clinician Source Performed [facility] ULTRAS[facility] 2020-02-14 05:01:00 Doctor Unassigned, No [facility] POCT TEST 2020-02-14 00:00:00 Jamil Mcclain [facility] CBC WITH DIFF 2019-12-29 09:12:00 [facility] VENOUS CORD GAS 2019-12-28 16:09:00 Sarahi [facility] SGOT (ASPARTATE AMINO 2019-12-28 10:13:00 Jamil Mcclain [facility]) Medical Branch CREATININE 2019-12-28 10:13:00 Sarahi [facility] ALANINE AMINO 2019-12-28 10:13:00 Sarahi [facility] TRANSFERASE(SGPT Medical Branch LACTATE DEHYDROGENASE 2019-12-28 10:13:00 Sarahi [facility] URIC ACID 2019-12-28 10:13:00 Sarahi [facility] CBC WITH DIFF 2019-12-28 10:13:00 Sarahi [facility] URINALYSIS 2019-12-28 10:13:00 Sarahi [facility] HEPATITIS B SURFACE 2019-12-28 10:13:00 Jamil Mcclain [facility] ADC OR JIM ONLY - 2019-12-28 10:13:00 Mcclain, Jamil Cam [facility] RPR Medical Branch PROTEIN CREAT RATIO 2019-12-28 10:13:00 Jamil [facility]clain [facility] URINE RANDOM Medical Branch HIV 1/2 AG-AB WITH 2019-12-28 10:13:00 Jamil Mcclain [facility] REFLEX Medical Branch HB ABO GROUPING 2019-12-28 10:05:00 Jamil Mcclain [facility] o f [facility] RHO (D) IMMUNE GLOBULIN 2019-12-28 10:05:00 EdgardoRejin [facility] Medical S[place] NOTICE OF PRIVACY 2019-12-28 09:06:12 Doctor Unassigned, No [facility] Medical Branch CONSENT/REFUSAL FOR 2019-12-28 09:05:59 Doctor Unassigned, No [facility] Medical Branch COVID-19 (ID NOW RAPID 2019-12-26 20:11:00 Jamil Mcclain [facility] Medical Branch NOTICE OF PRIVACY 2019-12-26 19:49:09 Doctor Unassigned, No [facility] Medical Branch CONSENT/REFUSAL FOR 2019-12-26 19:48:51 Doctor Unassigned, No Un [facility]ity [facility] [place] DIAGNOSIS AND TREATMENT [facility] Medical Branch ASSIGNMENT OF BENEFITS 2019-12-26 19:48:36 Doctor Unassigned, No [facility] DSU PRE-OP 2019-12-26 05:01:00 Doctor Unassigned, No [facility] L&D VISIT 2019-12-26 05:01:00 Doctor Unassigned, No [facility] (NON-DELIVERED) [facility] URINALYSIS 2019-12-04 17:32:00 Jamil Mcclain [place] o [facility] ASSIGNMENT OF BENEFITS 2019-12-04 16:21:25 Doctor Unassigned, No [facility] POCT URINALYSIS W/O 2019-11-26 00:00:00 Jamil [facility]cl[facility] SPECIFIC GRAVITY Medical Branch ASSIGNMENT OF BENEFITS 2019-11-24 13:04:25 Doctor Unassigned, No [facility] POCT URINALYSIS W/O 2019-11-07 15:35:00 Jamil Mcclain [facility] [place] SPECIFIC GRAVITY Medical Branch AUTHORIZATION TO RELEASE 2019-11-07 05:01:00 Doctor Unassigned, No [facility] PHI TO [facility] Name Medical Branch ADC CLC OR LCC ONLY - 2019-11-05 01:18:[address] [facility] Medical Branch ASSIGNMENT OF BENEFITS 2019-11-05 00:30:19 Doctor Unassigned, No [facility] Name Medical Sess[place] NOTICE OF PRIVACY 2019-11-05 00:30:04 Doctor Unassigned, No [facility] Name Medical Branch ASSIGNMENT OF BENEFITS 2019-11-05 00:29:52 Doctor Unassigned, No [facility] Branch L&D VISIT 2019-11-04 05:01:00 Doctor Unassigned, No [facility] (NON-DELIVERED) [facility] Encounters Start End Encounter Admission Attending Care Care Encounter Source Date/Time Date/Time Type Type Clinicians Facility Department ID 2021-03-13 Outpatient P [facility] ZEYNEP [id number] Univers 02:[facility] 2020-08-14 2020-08-14 Outpatient R LAY [facility] [id number] Univers 09:00:00 09:00:00 ALICE [facility] 2020-08-05 2020-08-05 [facility] [id number] Univers 00:00:00 00:00:00 Outreach [facility] [id number] [facility] [id number] [phone] Or dical 388 Branch 2020-03-13 2020-03-13 Outpatient R JAMIL MCCLAIN [facility] [id number] Univers 10:30:00 10:30:00 ity [facility] 2020-02-15 2020-02-15 Telephone Sarahi [facility] [id number] Univers 00:00:00 00:00:00 Cam [place] [id number] [id number] [phone] Or dical nal [address] 2020-02-14 2020-02-14 Office Mcclain, [facility] [id number] Univers 10:21:54 11:14:24 Visit Misael Bunn [id number] i ty [id number] [phone] [address] 2020-02-14 2020-02-14 Outpatient R SARAHI JAMIL [facility] [id number] Univers 10:15:00 10:15:00 ity of [facility] 2020-02-14 2020-02-14 Orders Doctor SHARMIN [id number] Univers 00:00:00 00:00:00 Only Unassigned, LAY [id number] ity of [place] [facility] [id number] [place] [phone] [address] 2020-01-29 2020-01-29 [facility] 1.2.840.114 [id number] Univers 16:49:24 17:08:59 Alice Chun [id number] ity of Visit [id number] [phone] [address] 2020-01-29 2020-01-29 Outpatient R LAY [facility] [id number] Univers 16:30:00 16:30:00 ALICE whitakre [facility] 2020-01-25 2020-01-25 Outpatient R LAY [facility] [id number] Univers 11:30:00 11:30:00 ALICE whitaker [facility] 2020-01-24 2020-01-24 Outpatient R LAY [facility] [id number] Univers 11:30:00 11:30:00 ALICE lupe [facility] 2020-01-03 2020-01-03 Telephone Sarahi [facility] 1.2.840.114 [id number] Univers 00:00:00 00:00:00 Misael Bunn [id number] i [id number] [phone] [address] 2019-12-28 2019-12-29 [facility] Mcclain, [facility] [id number] Univers 04:08:00 17:55:00 Encounter Cam [place] [id number] ity of [id number] [place] [phone] [address] 2019-12-28 2019-12-28 Orders Doctor SHARMIN 1.2.840.114 [id number] Univers 00:00:00 00:00:00 Only Unassigned, LAY [id number] ity of [place] [facility] [id number] [place] [phone] [address] 2019-12-26 2019-12-26 [facility] Jamil Mcclain [facility] 1.2.840.114 [id number] Univers 14:41:00 17:30:00 Encounter Cam [place] [id number] ity of [place] [id number] [place] [id number] [address] 2019-12-26 2019-12-26 Routine Jamil Mcclain [facility] [id number] Univers 13:10:49 14:23:13 Cam [place] [id number] ity of Visit [place] [id number] [place] [facility] [phone] Or dic[address] 2019-12-26 2019-12-26 Outpatient R JAMIL MCCLAIN [facility] [id number] Univers 13:15:00 13:15:00 ity of [facility] 2019-12-26 2019-12-26 Orders Doctor SHARMIN 1.2.840.114 [id number] Univers 00:00:00 00:00:00 Only Unassigned, LAY [id number] ity of [place] [facility] 4.2.7.2.686 [place] [phone] [address] 2019-12-10 2019-12-10 Outpatient R [facility] [id number] Univers 09:30:00 09:30:00 ity of [facility] 2019-12-04 2019-12-04 [facility] Jamil Mcclain [facility] 1.2.840.114 [id number] Univers 11:24:22 14:25:00 Encounter Connorfredo Chapito Bunn 350.1.1 3.10 ity of [place] [id number] [place] [id number] [facility] 083 [place] 2019-12-04 2019-12-04 Outpatient P [facility] ZEYNEP [id number] Univers 11:22:00 11:22:00 ity of [facility] 2019-12-04 2019-12-04 Outpatient P [facility] ZEYNEP [id number] Univers 11:22:00 11:22:00 ity of [facility] 2019-12-04 2019-12-04 Orders Doctor SHARMIN 1.2.840.114 [id number] Univers 00:00:00 00:00:00 Only Unassigned, LAY [id number] ity of [place] [facility] [id number] [place] [phone] [facility] 009 S[place] 2019-11-28 2019-11-28 Letter Jamil Mcclain [facility] [id number] Univers 00:00:00 00:00:00 (Out) Misael Bunn [id number] [id number] [phone] Or dical nal [address] [facility] 2019-11-26 2019-11-26 Routine Jamil Mcclain [facility] [id number] Univers 08:38:28 09:10:14 Misael Bunn 350.1.13.10 ity of [place].2.[place] [phone] Or dical nal [address] [facility] 2019-11-26 2019-11-26 Outpatient R JAMIL MCCLAIN [facility] [id number] Univers 08:30:00 08:30:00 ity of [facility] 2019-11-24 2019-11-24 Sybase Developer 1, Yamilet Pérez [facility] 1.2.840.114 [id number] Univers 08:03:44 08:18:44 Visit Jamil Mcclain 350.1.13.10 ity of [place] [id number] [place] [phone] [facility] 353 [address] 2019-11-24 2019-11-24 Outpatient R [facility] [id number] Univers 08:00:00 08:00:00 ity of [facility] 2019-11-24 2019-11-24 Orders Doctor SHARMIN 1.2.840.114 [id number] Univers 00:00:00 00:00:00 Only Unassigned, LAY [id number] ity of [place] [facility] 4.2.7.2.686 [place] [phone] [facility] 009 Sess[address] 2019-11-23 2019-11-23 Telephone Jamil Mcclain [facility] 1.2.840.114 [id number] Univers 00:00:00 00:00:00 Cam [place] 350.1.13.10 i ty of [place] 4[place].2.[place] [phone] Or dical nal [address] [facility] 2019-11-20 2019-11-20 Telephone Jamil Mcclain [facility] 1.2.840.114 [id number] Univers 00:00:00 00:00:00 Cam [place] 350.1.13.10 i ty of [place] 4.2.[place].2.[place] [phone] Or dical nal [address] [facility] 2019-11-16 2019-11-16 Laboratory Lab, Adc Fam Pob I [facility] 1.2. [id number] [id number] Univers 10:03:27 10:23:27 Only Sherlyn [facility] [id number] ity of [place] [id number] [place] Professio [phone] Or dical nal [address] Branch Office [address] One 2019-11-16 2019-11-16 Outpatient R ANJEL [facility] [id number] Univers 10:00:00 10:00:00 SHERLYN whitaker of [facility] 2019-11-09 2019-11-09 Outpatient R SÁNCHEZ, [facility] [id number] Univers 08:30:00 08:30:00 MONIQUE ity of [facility] 2019-11-07 2019-11-07 Initial Jamil Mcclain [facility] [id number] Univers 10:10:50 11:22:06 Cam [place] [id number] ity of [place].7.2.[place] [facility] [phone] Or dical [facility] [address] [facility] 2019-11-07 2019-11-07 Outpatient R JAMIL MCCLAIN [facility] [id number] Univers 10:00:00 10:00:00 ity of [facility] 2019-11-07 2019-11-07 Orders Doctor SHARMIN 1.2.840.114 [id number] Univers 00:00:00 00:00:00 Only Unassigned, LAY 350.1.13.10 ity of [place] [facility] 4.2.7.2.686 [place] [phone] [facility] 009 S[place] 2019-11-04 2019-11-04 [facility] 1.2.840.114 [id number] Univers 19:31:00 21:00:00 Encounter Chapito [place] [id number] ity of [place] [id number] [phone] [facility] 083 [address] 2019-11-04 2019-11-04 Outpatient P CONNORCHAPITO MOE [facility] ZEYNEP [id number] Univers 19:31:00 19:31:00 [facility] 2019-06-12 2019-06-12 Emergency E [facility] [address] [facility] 08:29:00 08:29:00 2019-04-15 2019-04-15 Emergency E [facility] [address] [facility] 12:43:00 12:43:00 Results Test Description Test Time Test Comments Results Result Comments Source POCT TEST 2020-02-14 15:56:00 Test Item Value Reference Range Interpretation Comme nts POCT PREG (test code = 1605) Negative On board controls acceptable with C Line (test code = 3574) Yes POCT PREG LOT # (test code = 3575) POCT PREG TEST DATE (test code = 3576) Lab Interpretation (test code = 17707-3) [id number] 15:56:00 Test Item Value Reference Range Interpretation Comments POCT PREG (test code = 1605) Negative On board controls acceptable with C Yes Line (test code = 3574) POCT PREG LOT # (test code = 3575) POCT PREG TEST DATE (test code = 3576) Lab Interpretation (test code = Normal 79109-7) [id number] 09:49:00 Test Item Value Reference Range Interpretation Comments WBC (test code = See_Comment [Automated 6690-2) message] The sy stem which generated this result transmitted reference range : 4.30 - 11.10 10*3/?L. The reference range was not used to interpret this result as normal/abnormal . RBC (test code = See_Comment L [Automated 789-8) message] The sy stem which generated this result transmitted reference range : 3.93 - 5.25 10*6/?L. The reference range was not used to interpret this result as normal/abnormal . HGB (test code = 10.1 g/dL 11.6-15 L 718-7) HCT (test code = 31.3 % 35.7-45.2 L 4544-3) MCV (test code = 80.9 fL 80.6-95.5 787-2) MCH (test code = 26.1 pg 25.9-32.8 785-6) MCHC (test code = 32.3 g/dL 31.6-35.1 786-4) RDW-SD (test code = 42.1 fL 39-49.9 07650-4) RDW-CV (test code = 14.6 % 12-15.5 788-0) PLT (test code = See_Comment [Automated 777-3) message] The sy stem which generated this result transmitted reference range : 166 - 358 10*3/ ?L. The reference r ludwig was not used to interpret this result as normal/abnormal . MPV (test code = 13.4 fL 9.5-12.9 H 01848-4) IPF % (test code = 9.0 % 1.3-7.7 H Platelet count 6389386612) measured by fluorescence method. NRBC/100 WBC (test See_Comment [Automat ed code = 3847246589) message] The system which generated this result transmitted reference range : 0.0 - 10.0 /100 WBCs. The refer ence range was not u sed to interpret th is result as normal/abnormal . NRBC x10^3 (test code <0.01 See_Comment [Auto mated = 7669669387) message] The s ystem which generated this result transmitted reference range : 10*3/?L. The reference range was not used to interpret this result as normal/abnormal . GRAN MAT (NEUT) % 67.8 % (test code = 770-8) IMM GRAN % (test code 0.40 % = 0085349009) LYMPH % (test code = 22.5 % 736-9) MONO % (test code = 6.3 % 5905-5) EOS % (test code = 2.6 % 713-8) BASO % (test code = 0.4 % 706-2) GRAN MAT x10^3(ANC) 6.25 10*3/uL 1.88-7.09 (test code = 0179385194) IMM GRAN x10^3 (test 0.04 10*3/uL 0-0.06 code = 5381394936) LYMPH x10^3 (test code 2.07 10*3/uL 1.32-3.29 = 731-0) MONO x10^3 (test code 0.58 10*3/uL 0.33-0.92 = 742-7) EOS x10^3 (test code = 0.24 10*3/uL 0.03-0.39 711-2) BASO x10^3 (test code 0.04 10*3/uL 0.01-0.07 = 704-7) Lab Interpretation Abnormal (test code = 88824-5) [facility] - [id number] 04:56:00 Test Item Value Reference Range Interpretation Comments RPR (Qualitative) (test code = Nonreactive Nonreactive 71869-1) Lab Interpretation (test code = Normal 99549-5) [facility] IMMUNE [id number] 00:39:42 Test Item Value Reference Range Interpretation Comments RHIG CANDIDATE? No- see comment Patient i s not a (test code = candidate for R hIg- 5055) Patient is Rh Positive.Perfor med at [facility] Laboratory Services - [facility] Blood [address] [place] [id number] Free: [phone] A No. [id number] [facility]Venous Cord [id number] 16:25:00 Test Item Value Reference Range Interpretation Comments VENOUS BASE EXCESS, mEq/L CORD (test code = 0036687991) VENOUS PH, CORD (test 7.25-7.45 code = 1806023425) VENOUS PC02, CORD See_Comment [Automate d message] The (test code = system which ge nerated 3858910363) this result tra nsmitted reference range : 27 - 49 mmHg. The refer ence range was not used to interpret this result as normal/abnormal . VENOUS PO2, CORD (test See_Comment [Aut omated message] The code = 8484487527) system [facility] generated this result tra nsmitted reference range : 17 - 41 mmHg. The refer ence range was not used to interpret this result as normal/abnormal . VENOUS BICARBONATE, See_Comment [Automa skip message] The CORD (test code = system [facility] generated 0518878323) this result tra nsmitted reference range : 12 - 29 mEq/L. The refe rence range was not used to interpret this result as normal/abnormal . [facility] Cord [id number] 16:22:00 Test Item Value Reference Range Interpretation Comments BASE EXCESS, CORD mEq/L (test code = 7191030531) AC PH, CORD (BEAKER) 7.18-7.38 (test code = 5925291737) PC02, CORD (test code See_Comment [Auto mated message] The = 3077458212) system which g enerated this result transmit skip reference range : 32 - 66 mmHg. The refer ence range was not used to interpret this result as normal/abnormal . PO2, CORD (test code See_Comment [Autom ated message] The = 8559054562) system which g enerated this result transmit skip reference range : 10 - 30 mmHg. The refer ence range was not used to interpret this result as normal/abnormal . BICARBONATE, CORD See_Comment [Automate d message] The (test code = system which ge nerated this 7631192826) result transmit skip reference range : 17 - 27 mEq/L. The refe rence range was not used to interpret this result as normal/abnormal . [facility]oundHepatitis B Surface [id number] 16:05:00 Test Item Value Reference Range Interpretation Comments HBsAg Semi-Quantitative (test code = Negative Negative 5195-3) [facility]HIV [facility]/2 AG-AB WITH [id number] 12:01:00 Test Item Value Reference Range Interpretation Comments HIV Negative Negative Semi-quantitative (test code = 62082-0) SHASHI (test code = Non-reactive for HIV-1 SHASHI) antigen and HIV-1/HIV-2 antibodies. ?No laboratory evidence of HIV infection. ?Repeat in 2-4 weeks if acute HIV infection is suspected. [facility]oundUrinalysis2020-08-14 11:19:00 Test Item Value Reference Range Interpretation Comments APPEARANCE (test code = Hazy Clear A 0225420528) COLOR (test code = Yellow Yellow 2574740016) PH (test code = 4.8-8.0 1862515722) SP GRAVITY (test code = 1.003-1.030 5934115961) GLU U QUAL (test code = Normal Normal 6699063088) BLOOD (test code = Negative Negative 4238568761) KETONES (test code = 20 mg/dL Negative A 7809124240) PROTEIN (test code = Negative Negative 2887-8) UROBILIN (test code = 2.0 mg/dL Normal A 8169276559) BILIRUBIN (test code = Negative Negative 8829687074) NITRITE (test code = Negative Negative 4031183260) LEUK SHARI (test code = Negative Negative 9255695459) RBC/HPF (test code = See_Comment [Autom ated message] 6124599856) The system [employer] generated this result transmit skip reference range : 0 - 3 HPF. The refe rence range was not u sed to interpret th is result as normal/abnormal . WBC/HPF (test code = See_Comment [Autom ated message] 6140923887) The system [employer] generated this result transmit skip reference range : 0 - 5 HPF. The refe rence range was not u sed to interpret th is result as normal/abnormal . BACTERIA (test code = Negative Negative 4224865089) MUCOUS (test code = Moderate Negative LPF A 3068575042) SQ EPITH (test code = HPF 9129539477) CA OXALATE (test code = See_Comment H [Au tomated message] 5964124382) The system [employer] generated this result transmit skip reference range : <=1 HPF. The refere nce range was not u sed to interpret th is result as normal/abnormal . UR AC MAYA (test code = See_Comment H [Au tomated message] 6480289348) The system [employer] generated this result transmit skip reference range : <=1 HPF. The refere nce range was not u sed to interpret th is result as normal/abnormal . Lab Interpretation (test Abnormal code = 49389-0) [facility]oundType and Screen - ONCE [id number] 11:11:50 Test Item Value Reference Range Interpretation Comments ABO & RH (test code A Positive Performe d at [facility] = 20) Laboratory Serv [facility] Blood Bank[address] [place], [place] [address]Toll Free: [phone] A No. [id number] IAT (test code = Negative Performed a t [facility] 1185) Laboratory Serv [facility] Blood Bank[address] [place], [place] [address]Toll Free: [phone] A No. [id number] [facility]oundProtein CREAT Ratio Urine [id number] 10:45:00 Test Item Value Reference Range Interpretation Comments T. PROT U (test code = 2888-6) 21 mg/dL CREAT U (test code = 8588654038) 132.6 mg/dL Protein/Creatinine Ratio Urine 0.0-2.0 (test code = 7904094110) [facility]oundUric Acid [id number] 10:43:00 Test Item Value Reference Range Interpretation Comments URIC ACID (test code = 1774080522) 4.3 mg/dL 2.9-6 Lab Interpretation (test code = Normal 51360-4) [facility]oundAlanine Amino Transferase (SGPT)2019-12-28 10:43:00 Test Item Value Reference Range Interpretation Comments ALTv (test code = 1742-6) 11 U/L 5-35 Lab Interpretation (test code = Normal 36130-1) [facility]oundLactate [id number] 10:43:00 Test Item Value Reference Range Interpretation Comments LDH (test code = 2619390167) 403 U/L 300-600 Lab Interpretation (test code = Normal 04784-8) General acute hospital Pdsphlfkpo0575-81-84 10:42:00 Test Item Value Reference Range Interpretation Comments CREATININE (test code = 0.37 mg/dL 0.5-1.04 L 0216899770) eGFR Calculation mL/min/1.73m2 (Non-) (test code = 7300631870) eGFR Calculation mL/min/1.73m2 () (test code = 3725189586) SHASHI (test code = SHASHI) Association of Glomerular Filtration Rate (GFR) and Staging of Kidney Disease* + --+ --+ ------+| GFR (mL/min/1.73 m2) ?| With Kidney Damage ?| ?Without Kidney Damage+ --------+ --------+ +| ?>90 ?| ?Stage one ?| ? Normal ?+ ---+ ---+ -------+| ?60-89 ?| ?Stage two ?| ? Decreased GFR ? + --+ --+ ------+| ?30-59 ?| ?Stage three ?| ? Stage three ? + --+ --+ ------+| ?15-29 ?| ?Stage four ? | ? Stage four ?+ ---+ ---+ -------+| ?<15 (or dialysis) ? ?| ?Stage five ? | ? Stage five ?+ ---+ ---+ -------+ *Each stage assumes the associated GFR level has been in effect for at least three months. ?Stages 1 to 5, with or without kidney disease, indicate chronic kidney disease. Notes: Determination of stages one and two (with eGFR >59mL/min/1.73 m2) requires estimation of kidney damage for at least three months as defined by structural or functional abnormalities of the kidney, manifested by either:Pathological abnormalities or Markers of kidney damage (including abnormalities in the composition of the blood or urine or abnormalities in imaging tests). Lab Interpretation Abnormal (test code = 05093-5) [facility] (Asparate Amino Transfer)2019-12-28 10:42:00 Test Item Value Reference Range Interpretation Comments AST(SGOT) (test code = 2569504486) 19 U/L 13-40 Lab Interpretation (test code = Normal 03466-2) [facility] [id number] 10:27:00 Test Item Value Reference Range Interpretation Comments WBC (test code = See_Comment [Automated 6690-2) message] The sy stem which generated this result transmitted reference range : 4.30 - 11.10 10*3/?L. The reference range was not used to interpret this result as normal/abnormal . RBC (test code = See_Comment [Automated 789-8) message] The sy stem which generated this result transmitted reference range : 3.93 - 5.25 10*6/?L. The reference range was not used to interpret this result as normal/abnormal . HGB (test code = 10.4 g/dL 11.6-15 L 718-7) HCT (test code = 32.2 % 35.7-45.2 L 4544-3) MCV (test code = 80.7 fL 80.6-95.5 787-2) MCH (test code = 26.1 pg 25.9-32.8 785-6) MCHC (test code = 32.3 g/dL 31.6-35.1 786-4) RDW-SD (test code = 42.2 fL 39-49.9 76784-9) RDW-CV (test code = 14.4 % 12-15.5 788-0) PLT (test code = See_Comment [Automated 777-3) message] The sy stem which generated this result transmitted reference range : 166 - 358 10*3/ ?L. The reference r ludwig was not used to interpret this result as normal/abnormal . MPV (test code = 12.7 fL 9.5-12.9 74012-7) NRBC/100 WBC (test See_Comment [Automat ed code = 9818128153) message] The system which generated this result transmitted reference range : 0.0 - 10.0 /100 WBCs. The refer ence range was not u sed to interpret th is result as normal/abnormal . NRBC x10^3 (test code <0.01 See_Comment [Auto mated = 6538825790) message] The s ystem which generated this result transmitted reference range : 10*3/?L. The reference range was not used to interpret this result as normal/abnormal . GRAN MAT (NEUT) % 65.1 % (test code = 770-8) IMM GRAN % (test code 0.30 % = 1200573171) LYMPH % (test code = 24.0 % 736-9) MONO % (test code = 8.3 % 5905-5) EOS % (test code = 1.8 % 713-8) BASO % (test code = 0.5 % 706-2) GRAN MAT x10^3(ANC) 4.79 10*3/uL 1.88-7.09 (test code = 9743233724) IMM GRAN x10^3 (test <0.03 0-0.06 code = 1776924428) LYMPH x10^3 (test code 1.77 10*3/uL 1.32-3.29 = 731-0) MONO x10^3 (test code 0.61 10*3/uL 0.33-0.92 = 742-7) EOS x10^3 (test code = 0.13 10*3/uL 0.03-0.39 711-2) BASO x10^3 (test code 0.04 10*3/uL 0.01-0.07 = 704-7) Lab Interpretation Abnormal (test code = 23362-2) [facility]OVID[facility] (ID NOW RAPID TESTING)2019-12-26 21:19:00 Test Item Value Reference Range Interpretation Comments SARS-CoV-2 Rapid ID NOW Not Detected Not Detected (test code = 55201-3) SHASHI (test code = SHASHI) ID NOW COVID-19 Assay is an isothermal nucleic acid amplification test intended for the qualitative detection of nucleic acid from SARS-CoV-2 viral RNA in nasopharyngeal (WEB ENGINEER) specimens. It is used under Emergency Use Authorization (EUA) by FDA. The limit of detection (LOD) of the assay is 125 Genome Equivalents/mL. A positive result is indicative of the presence of SARS-CoV-2 RNA. ?Clinical correlation with patient history and other diagnostic information is necessary to determine patient infection status. A negative (Not Detected) result does not preclude SARS-CoV-2 infection. In patients with clinical symptoms and other tests that are consistent with SARS-CoV-2 infection, negative results should be treated as presumptive negative and a new specimen should be tested with alternative PCR molecular test. Invalid: Please collect a new specimen for repeat patient testing if clinically indicated. Lab Interpretation Normal (test code = 84954-7) [facility]URINALYSIS2020-07-21 18:18:00 Test Item Value Reference Range Interpretation Comments APPEARANCE (test code = Hazy Clear A 2207367678) COLOR (test code = Yellow Yellow 9908293058) PH (test code = 4.8-8.0 5159713254) SP GRAVITY (test code = 1.003-1.030 1674571234) GLU U QUAL (test code = Normal Normal 7696883188) BLOOD (test code = Negative Negative 1894968128) KETONES (test code = Negative Negative 4524722058) PROTEIN (test code = Negative Negative 2887-8) UROBILIN (test code = Normal Normal 2905967493) BILIRUBIN (test code = Negative Negative 5919931342) NITRITE (test code = Negative Negative 4861051450) LEUK SHARI (test code = 75/uL Negative A 8695841708) RBC/HPF (test code = See_Comment [Autom ated message] 5355804171) The system [employer] generated this result transmitted ref erence range: 0 - 3 HP F. The reference range was not used to int erpret this result as normal/abnormal . WBC/HPF (test code = See_Comment H [Autom ated message] 0422073756) The system [employer] generated this result transmitted ref erence range: 0 - 5 HP F. The reference range was not used to int erpret this result as normal/abnormal . BACTERIA (test code = Few Negative A 3638359897) MUCOUS (test code = Moderate Negative LPF A 7179774472) SQ EPITH (test code = HPF 1293168480) Lab Interpretation (test Abnormal code = 22264-1) [facility]PO[facility] URINALYSIS W/O SPECIFIC [id number] 13:51:00 Test Item Value Reference Range Interpretation Comments POCT PH U (test code = 3254) na/ 5-8 POCT U LEUK EST (test code = 3263) n/a Negative - Negative POCT U NIT (test code = 3262) n/a Negative - Negative POCT U PROT (test code = 3259) neg Negative - Negative POCT U GLU (test code = 3256) neg Negative - Negative POCT U KETONE (test code = 3258) n/a Negative - Negative POCT U BLD (test code = 3257) n/a Negative - Negative [facility]INAL[facility] W/O SPECIFIC [id number] 15:35:00 Test Item Value Reference Range Interpretation Comments POCT PH U (test code = 3254) n/a 5-8 POCT U LEUK EST (test code = 3263) n/a Negative - Negative POCT U NIT (test code = 3262) n/a Negative - Negative POCT U PROT (test code = 3259) neg Negative - Negative POCT U GLU (test code = 3256) neg Negative - Negative POCT U KETONE (test code = 3258) n/a Negative - Negative POCT U BLD (test code = 3257) n/a Negative - Negative [facility] CLC OR LCC ONLY - WET [id number] 01:34:00 Test Item Value Reference Range Interpretation Comments Wet Prep (test code = No Clue cells present 1181887802) [facility]oundTISSUE [id number] 14:01:00 Test Item Value Reference Range Interpretation Comments LAB AP CPT CODE (BEAKER) (test code = 40725 2749) CBC W/PLT COUNT & AUTO [id number] 04:50:00 Test Item Value Reference Range Interpretation Comments WHITE BLOOD CELL COUNT 8.9 K/ L 4.0-10.0 (BEAKER) (test code = 775) RED BLOOD CELL COUNT (BEAKER) 4.07 M/ L 4.00-5.00 (test code = 761) HEMOGLOBIN (BEAKER) (test 9.2 GM/DL 12.0-15.0 L code = 410) HEMATOCRIT (BEAKER) (test 29.2 % 36.0-45.0 L code = 411) MEAN CORPUSCULAR VOLUME 71.7 fL 82.0-99.0 L (BEAKER) (test code = 753) MEAN CORPUSCULAR HEMOGLOBIN 22.6 pg 27.0-33.0 L (BEAKER) (test code = 751) MEAN CORPUSCULAR HEMOGLOBIN 31.5 GM/DL 32.0-36.0 L CONC (BEAKER) (test code = 752) RED CELL DISTRIBUTION WIDTH 19.0 % 10.3-14.2 H (BEAKER) (test code = 412) PLATELET COUNT (BEAKER) (test 304 K/CU MM 150-430 No clot seen code = 756) MEAN PLATELET VOLUME (BEAKER) 10.1 fL 6.5-10.5 (test code = 754) NUCLEATED RED BLOOD CELLS 0 /100 WBC 0-0 (BEAKER) (test code = 413) NEUTROPHILS RELATIVE PERCENT 63 % (BEAKER) (test code = 429) LYMPHOCYTES RELATIVE PERCENT 26 % (BEAKER) (test code = 430) MONOCYTES RELATIVE PERCENT 7 % (BEAKER) (test code = 431) EOSINOPHILS RELATIVE PERCENT 3 % (BEAKER) (test code = 432) BASOPHILS RELATIVE PERCENT 1 % (BEAKER) (test code = 437) NEUTROPHILS ABSOLUTE COUNT 5.70 K/ L 1.80-8.00 (BEAKER) (test code = 670) LYMPHOCYTES ABSOLUTE COUNT 2.40 K/ L 1.48-4.50 (BEAKER) (test code = 414) MONOCYTES ABSOLUTE COUNT 0.60 K/ L 0.00-1.30 (BEAKER) (test code = 415) EOSINOPHILS ABSOLUTE COUNT 0.20 K/ L 0.00-0.50 (BEAKER) (test code = 416) BASOPHILS ABSOLUTE COUNT 0.00 K/ L 0.00-0.20 (BEAKER) (test code = 417) (MANUAL DIFFERENTIAL)2016-07-02 04:50:00 Test Item Value Reference Range Interpretation Comments TOTAL COUNTED (BEAKER) (test code = 1351) WBC MORPHOLOGY (BEAKER) (test Normal code = 487) PLT MORPHOLOGY (BEAKER) (test Normal code = 486) ANISOCYTOSIS (BEAKER) (test code 2+ moderate = 961) HYPOCHROMIA (BEAKER) (test code = 2+ moderate 963) [id number] 13:52:00 Test Item Value Reference Range Interpretation Comments RPR SCREEN (BEAKER) (test code = Nonreactive Nonreactive 420) (MANUAL DIFFERENTIAL)2016-07-01 13:06:00 Test Item Value Reference Range Interpretation Comments TOTAL COUNTED (BEAKER) (test code = 1351) WBC MORPHOLOGY (BEAKER) (test code = Normal 487) PLT MORPHOLOGY (BEAKER) (test code = Normal 486) ANISOCYTOSIS (BEAKER) (test code = 1+ few 961) HYPOCHROMIA (BEAKER) (test code = 3+ many 963) MICROCYTES (BEAKER) (test code = 965) 1+ few CBC W/PLT COUNT & AUTO [id number] 13:06:00 Test Item Value Reference Range Interpretation Comments WHITE BLOOD CELL COUNT (BEAKER) 9.4 K/ L 4.0-10.0 (test code = 775) RED BLOOD CELL COUNT (BEAKER) 4.23 M/ L 4.00-5.00 (test code = 761) HEMOGLOBIN (BEAKER) (test code = 9.5 GM/DL 12.0-15.0 L 410) HEMATOCRIT (BEAKER) (test code = 30.3 % 36.0-45.0 L 411) MEAN CORPUSCULAR VOLUME (BEAKER) 71.6 fL 82.0-99.0 L (test code = 753) MEAN CORPUSCULAR HEMOGLOBIN 22.6 pg 27.0-33.0 L (BEAKER) (test code = 751) MEAN CORPUSCULAR HEMOGLOBIN CONC 31.5 GM/DL 32.0-36.0 L (BEAKER) (test code = 752) RED CELL DISTRIBUTION WIDTH 18.9 % 10.3-14.2 H (BEAKER) (test code = 412) PLATELET COUNT (BEAKER) (test 358 K/CU MM 150-430 code = 756) MEAN PLATELET VOLUME (BEAKER) 10.1 fL 6.5-10.5 (test code = 754) NUCLEATED RED BLOOD CELLS 0 /100 WBC 0-0 (BEAKER) (test code = 413) NEUTROPHILS RELATIVE PERCENT 73 % (BEAKER) (test code = 429) LYMPHOCYTES RELATIVE PERCENT 20 % (BEAKER) (test code = 430) MONOCYTES RELATIVE PERCENT 6 % (BEAKER) (test code = 431) EOSINOPHILS RELATIVE PERCENT 1 % (BEAKER) (test code = 432) BASOPHILS RELATIVE PERCENT 0 % (BEAKER) (test code = 437) NEUTROPHILS ABSOLUTE COUNT 6.80 K/ L 1.80-8.00 (BEAKER) (test code = 670) LYMPHOCYTES ABSOLUTE COUNT 1.90 K/ L 1.48-4.50 (BEAKER) (test code = 414) MONOCYTES ABSOLUTE COUNT (BEAKER) 0.50 K/ L 0.00-1.30 (test code = 415) EOSINOPHILS ABSOLUTE COUNT 0.10 K/ L 0.00-0.50 (BEAKER) (test code = 416) BASOPHILS ABSOLUTE COUNT (BEAKER) 0.00 K/ L 0.00-0.20 (test code = 417) BLOOD GAS, CORD [id number] 11:38:00 Test Item Value Reference Range Interpretation Comments PH CORD VENOUS (BEAKER) (test 7.34 7.32-7.42 code = 2866) PCO2 CORD VENOUS (BEAKER) (test 46 mmHg 41-51 code = 2867) PO2 CORD VENOUS (BEAKER) (test 24 mmHg 25-40 L code = 2868) HCO3 CORD VENOUS (BEAKER) (test 24 mmol/L 21-29 code = 2869) BASE EXCESS CORD VENOUS (BEAKER) -2.0 mmol/L -2.0-3.0 (test code = 2870) PATIENT TEMPERATURE (BEAKER) 37.0 C (test code = 1818) BLOOD GAS, CORD [id number] 11:37:00 Test Item Value Reference Range Interpretation Comments PH CORD ARTERIAL (BEAKER) (test 7.29 7.15-7.38 code = 2861) PCO2 CORD ARTERIAL (BEAKER) (test 57 mmHg 32-68 code = 2862) PO2 CORD ARTERIAL (BEAKER) (test 19 mmHg 16-20 code = 2863) HCO3 CORD ARTERIAL (BEAKER) (test 27 mmol/L 15-27 code = 2864) BASE EXCESS CORD ARTERIAL -1.3 mmol/L -8.1-0.9 (BEAKER) (test code = 2865) PATIENT TEMPERATURE (BEAKER) 37.0 C (test code = 1818) HEPATITIS B SURFACE [id number] 08:52:00 Test Item Value Reference Range Interpretation Comments HEPATITIS B SURFACE ANTIGEN (2) Nonreactive Nonreactive (BEAKER) (test code = 2585)"
[2022-09-29] MEDS ORDERED: ALBUTEROL 2.5 MG/3 ML NEB SOL ONE (23:51)
[2022-09-29] MEDS ORDERED: IPRATROPIUM BROM 0.5MG/2.5ML ONE (23:51)
[2022-09-30 00:12] LABS: Hematocrit 37.5 % (36.0-45.0); Lymphocytes % 29.9 % (15.3-44.8); MCV 88.4 fL (80-100); MPV 9.3 fL (7.6-11.3); RBC Red Blood Cell Count 4.24 M/uL (3.86-4.86)
[2022-09-30 00:14] LABS: Protime INR 0.92
[2022-09-30 00:28] LABS: ALT/SGPT 32 U/L (13-56); AST/SGOT 11 U/L (15-37); Albumin 3.8 g/dL (3.4-5.0); Alkaline Phosphatase 60 U/L (45-117); BUN Blood Urea Nitrogen 7 mg/dL (7-18); Bicarbonate 23 mEq/L (21-32); Bilirubin Total 0.2 mg/dL (0.2-1.0); Glomerular Filtration Rate 127 ml/min (=/>90); Glucose Level 127 mg/dL (74-106); Magnesium 1.9 mg/dL (1.6-2.4); NT PRO-BNP 77 pg/mL (<125); Protein, Total 7.4 g/dL (6.4-8.2); Sodium Level 137 mEq/L (136-145); Troponin High Sensitivity 6.4 pg/mL (<58.9)
[2022-09-30 00:35] LABS: Bilirubin Direct < 0.1 mg/dL (0-0.2); Bilirubin Indirect, Calculated ND mg/dL (0.2-0.8)
[2022-09-30] MEDS ORDERED: METHYLPREDNISOLONE 125 MG INJ ONE (00:45)
[2022-09-30] MEDS ORDERED: KETOROLAC 30 MG/ML INJ ONE (00:58)
[2022-09-30 01:30] LABS: Specific Gravity 1.009 (1.005-1.030); Urine Bacteria <20 /HPF (<20); Urine Bilirubin NEGATIVE (Negative); Urine Blood 2+ (Negative); Urine Clarity Turbid (Clear); Urine Color Light-Yellow (Yellow); Urine Glucose NEGATIVE (Negative); Urine Mucus Slight /HPF (None Seen); Urine Protein NEGATIVE (Negative); Urine Urobilinogen Normal (Normal); Urine pH 7.5 (5.0-7.0)
[2022-09-30 01:32] LABS: Specific Gravity 1.009 (1.005-1.030)
--- NOTE | 2022-09-30 03:06 | ER ---
Nurse's Notes [facility] Name: Yasmeen Steiner Age: 27 yrs Sex: Female : 1995 Arrival Date: 09/29/2022 Time: 23:25 Bed 5 Private MD: Diagnosis: Chest pain, unspecified;Shortness of breath Presentation: 09/29 23:36 Chief complaint: Patient states: "I am having a really hard time catching my breath" pt as6 c/o sob and cp x1 day. Coronavirus screen: At this time, the client does not indicate any symptoms associated with coronavirus-19. Ebola Screen: No symptoms or risks identified at this time. Initial Sepsis Screen: Does the patient meet any 2 criteria? No. Patient's initial sepsis screen is negative. Does the patient have a suspected source of infection? No. Patient's initial sepsis screen is negative. Risk Assessment: Do you want to hurt yourself or someone else? Patient reports no desire to harm self or others. Onset of symptoms was September 28, 2022. 23:36 Acuity: MARGOT 3 as6 23:36 Method Of Arrival: Ambulatory as6 Triage Assessment: 23:35 General: Appears in no apparent distress. Behavior is cooperative, anxious. Pain: as6 Complains of pain in chest. Respiratory: Reports shortness of breath. 09/30 03:18 Respiratory: Onset: The symptoms/episode began/occurred gradually, the patient has mild aa9 shortness of breath. REGROOVER: 09/29 23:38 LMP N/A - control method as6 Historical: - Allergies: 23:36 No Known Allergies; as6 - Home Meds: 23:36 None [Active]; as6 - PMHx: 23:36 None; as6 - PSHx: 23:36 Appendectomy; as6 - Immunization history:: Client reports having NOT received the Covid vaccine. - Social history:: Smoking status: Patient denies any tobacco usage or history of. Screenin:38 [facility] ED Fall Risk Assessment (Adult) Score/Fall Risk Level 0 - 2 = Low Risk. Abuse as6 screen: Denies threats or abuse. Denies injuries from another. Nutritional screening: No deficits noted. Tuberculosis screening: No symptoms or risk factors identified. Assessment: 23:51 General: Appears uncomfortable, Behavior is calm, cooperative. Neuro: Level of aa9 Consciousness is awake, alert, obeys commands, Oriented to person, place, time, situation. Cardiovascular: Rhythm is regular. Respiratory: Airway is patent Respiratory effort is even, unlabored. : No signs and/or symptoms were reported regarding the genitourinary system. 09/30 00:49 Reassessment: Patient appears in no apparent distress at this time. c/o chest pain, aa9 notified provider. 01:20 Reassessment: Patient appears in no apparent distress at this time. Patient and/or aa9 family updated on plan of care and expected duration. Pain level reassessed. Patient is alert, oriented x 3, equal unlabored respirations, skin warm/dry/pink. Patient states feeling better. 02:00 Reassessment: Patient appears in no apparent distress at this time. Patient and/or aa9 family updated on plan of care and expected duration. Pain level reassessed. Patient is alert, oriented x 3, equal unlabored respirations, skin warm/dry/pink. 03:00 Reassessment: Patient appears in no apparent distress at this time. Patient and/or aa9 family updated on plan of care and expected duration. Pain level reassessed. Patient is alert, oriented x 3, equal unlabored respirations, skin warm/dry/pink. Vital Signs: 09/29 23:36 BP 158 / 106; Pulse 80; Resp 23 S; Temp 97.8(O); Pulse Ox 100% on R/A; Weight 81.65 kg as6 (R); Height 5 ft. 8 in. (R); Pain 6/10; 23:52 BP 149 / 83; Pulse 70; Resp 16; Pulse Ox 100% on Nebulizer Mask; aa9 09/30 00:09 BP 121 / 78; Pulse 63; Resp 19; Pulse Ox 100% on R/A; kd3 00:30 BP 114 / 75; Pulse 62; Resp 18 S; Pulse Ox 100% on R/A; aa9 02:00 BP 119 / 82; Pulse 63; Resp 21 S; Pulse Ox 97% on R/A; aa9 03:10 BP 120 / 86; Pulse 72; Resp 19; Pulse Ox 97% on R/A; kd3 09/29 23:36 Body Mass Index 27.37 (81.65 kg, 172.72 cm) as6 05/17 23:36 Pain Scale: Adult as6 ED Course: 09/29 23:27 Patient arrived in ED. ag3 23:28 Jose Francisco Peterson PA is PHCP. cp 23:28 Quincy Dugan MD is Attending Physician. cp 23:32 Fina Moran, NGOZI is Primary Nurse. aa9 23:35 Arm band placed on. as6 23:38 Triage completed. as6 23:38 Placed in gown. Bed in low position. Call light in reach. Side rails up X 1. Adult w/ as6 patient. Client placed on continuous cardiac and pulse oximetry monitoring. NIBP monitoring applied. 09/30 00:00 Inserted saline lock: 20 gauge in right antecubital area, using aseptic technique. wm Blood collected. 00:03 XRAY Chest (1 view) In Process Unspecified. EDMS 00:03 Basic Metabolic Panel Sent. wm 00:03 CBC with Diff Sent. wm 00:03 D-Dimer Sent. wm 00:03 LFT's Sent. wm 00:03 Magnesium Sent. wm 00:03 NT PRO-BNP Sent. wm 00:03 PT-INR Sent. wm 00:03 Troponin HS Sent. wm 00:04 COVID-19 SARS RT PCR Sent. wm 00:33 US Extremity Venous W Compression Chuck In Process Unspecified. EDMS 02:01 CT Chest For PE Angio In Process Unspecified. EDMS 03:18 No provider procedures requiring assistance completed. IV discontinued, intact, aa9 bleeding controlled, No redness/swelling at site. Pressure dressing applied. Administered Medications: 09/29 23:48 Drug: Albuterol Inhalation 2.5 mg Route: Inhalation; aa9 23:48 Drug: Ipratropium Inhalation Aerosol 0.5 mg Route: Inhalation; aa9 09/30 00:47 Drug: MethylPrednisoLONE IVP 125 mg Route: IVP; Site: right antecubital; aa9 03:11 Follow up: Response: No adverse reaction kd3 00:56 Drug: Ketorolac IVP 15 mg Route: IVP; Site: right antecubital; aa9 03:10 Follow up: Response: No adverse reaction; Pain is decreased kd3 Medication: 09/29 23:38 VIS not applicable for this client. as6 Outcome: 09/30 03:05 Discharge ordered by . cp 03:18 Discharged to home ambulatory, with significant other. aa9 03:18 Condition: stable 03:18 Condition: stable 03:18 Discharge instructions given to patient, significant other, Instructed on discharge instructions, follow up and referral plans. medication usage, Demonstrated understanding of instructions, follow-up care, medications, Prescriptions given X 2. 03:19 Patient left the ED. aa9 Signatures: Dispatcher [employer] EDMS Jose Francisco Peterson PA PA cp Sandra Virk ag3 Jada Sood Ashby, RN RN as6 Pam Beach RN RN kd3 Fina Moran RN RN aa9 Corrections: (The following items were deleted from the chart) 03:19 03:18 Respiratory: aa9 aa9
--- NOTE | 2022-09-30 03:06 | EDPHYS ---
Physician Documentation [facility] Name: Yasmeen Steiner Age: 27 yrs Sex: Female : 1995 Arrival Date: 09/29/2022 Time: 23:25 Bed 5 Private MD: ED Physician Quincy Dugan HPI: 09/29 23:42 This 27 yrs old Female presents to ER via Ambulatory with complaints of cp Shortness Of Breath. 23:45 The patient has shortness of breath at rest. cp 23:45 Onset: The symptoms/episode began/occurred yesterday. Duration: The symptoms are cp continuous, and are steadily getting worse. Associated signs and symptoms: Pertinent positives: chest pain, Pertinent negatives: productive cough, fever, vomiting. Severity of symptoms: in the emergency department the symptoms are unchanged despite home interventions. 23:45 Patient is a 27-year-old female who presents to the emergency department with cp complaints of chest pain and shortness of breath x1 day. Patient denies cough, denies fever. Reports a recent return from a long road trip to visit family in [place] and reports some intermittent pain in the leg. EMERGENCY MEDICINE NURSE PRACTITIONER: 23:38 LMP N/A - control method as6 Historical: - Allergies: 23:36 No Known Allergies; as6 - Home Meds: 23:36 None [Active]; as6 - PMHx: 23:36 None; as6 - PSHx: 23:36 Appendectomy; as6 - Immunization history:: Client reports having NOT received the Covid vaccine. - Social history:: Smoking status: Patient denies any tobacco usage or history of. ROS: 23:50 Constitutional: Negative for body aches, chills, fever, poor PO intake. cp 23:50 ENT: Negative for drainage from ear(s), ear pain, sore throat, difficulty swallowing, cp difficulty handling secretions. 23:50 Cardiovascular: Positive for chest pain, palpitations, Negative for edema. 23:50 Respiratory: Positive for shortness of breath, at rest. Negative for cough, wheezing. 23:50 Abdomen/GI: Negative for abdominal pain, vomiting, diarrhea, constipation. 23:50 Back: Negative for pain at rest, pain with movement. 23:50 : Negative for urinary symptoms. 23:50 Neuro: Negative for altered mental status, headache, numbness, syncope, near syncope, weakness. 23:50 All other systems are negative. Exam: 23:47 ECG was reviewed by the Attending Physician. cp 23:55 Constitutional: The patient appears in no acute distress, alert, awake, cp non-diaphoretic, non-toxic, well developed, well nourished, anxious, overweight 23:55 Head/Face: Normocephalic, atraumatic. cp 23:55 Eyes: Periorbital structures: appear normal, Conjunctiva: normal, no exudate, no injection, Sclera: no appreciated abnormality, Lids and lashes: appear normal, bilaterally. 23:55 ENT: External ear(s): are unremarkable, Nose: is normal, Mouth: Lips: moist, Oral mucosa: pink and intact, moist, Posterior pharynx: is normal, airway is patent, no erythema, no exudate. 23:55 Neck: ROM/movement: is normal, is supple, without pain, no range of motions limitations, no meningismus, no nuchal rigidity. 23:55 Chest/axilla: Inspection: normal. 23:55 Cardiovascular: Rate: tachycardic, Rhythm: regular, Heart sounds: murmur, not appreciated, Edema: is not appreciated, JVD: is not appreciated. 23:55 Respiratory: the patient does not display signs of respiratory distress, Respirations: labored breathing, that is mild, Breath sounds: are clear throughout, no decreased breath sounds, no stridor, no wheezing. 23:55 Abdomen/GI: Inspection: abdomen appears normal, Palpation: abdomen is soft and non-tender, in all quadrants. 23:55 Back: pain, is absent, ROM is normal. 23:55 Neuro: Orientation: to person, place \T\ time. Mentation: is normal, Cerebellar function: is grossly normal, Motor: moves all fours, strength is normal, Sensation: is normal. Vital Signs: 23:36 BP 158 / 106; Pulse 80; Resp 23 S; Temp 97.8(O); Pulse Ox 100% on R/A; Weight 81.65 kg as6 (R); Height 5 ft. 8 in. (R); Pain 6/10; 23:52 BP 149 / 83; Pulse 70; Resp 16; Pulse Ox 100% on Nebulizer Mask; aa9 09/30 00:09 BP 121 / 78; Pulse 63; Resp 19; Pulse Ox 100% on R/A; kd3 00:30 BP 114 / 75; Pulse 62; Resp 18 S; Pulse Ox 100% on R/A; aa9 02:00 BP 119 / 82; Pulse 63; Resp 21 S; Pulse Ox 97% on R/A; aa9 03:10 BP 120 / 86; Pulse 72; Resp 19; Pulse Ox 97% on R/A; kd3 09/29 23:36 Body Mass Index 27.37 (81.65 kg, 172.72 cm) as6 09/29 23:36 Pain Scale: Adult as6 MDM: 09/29 23:30 Patient medically screened. 09/30 00:00 Differential diagnosis: CHF exacerbation, Myocardial Infarction pneumonia, Pneumothorax cp pulmonary edema, Pulmonary Embolism Sepsis. 03:05 Data reviewed: vital signs, nurses notes, lab test result(s), EKG, radiologic studies, cp CT scan, plain films. 03:05 Antibiotic administration: Not indicated, the patient does not have an appreciated cp infiltrate. I considered the following discharge prescriptions or medication management in the emergency department Medications were administered in the Emergency Department. See MAR. Counseling: I had a detailed discussion with the patient and/or guardian regarding: the historical points, exam findings, and any diagnostic results supporting the discharge/admit diagnosis, lab results, radiology results, to return to the emergency department if symptoms worsen or persist or if there are any questions or concerns that arise at home. Response to treatment: the patient's symptoms have markedly improved after treatment, and as a result, I will discharge patient. 09/29 23:40 Order name: Basic Metabolic Panel; Complete Time: 00:50 09/30 00:50 Interpretation: Normal except: K 3.0; CL 110; GLUC 127. 09/29 23:40 Order name: CBC with Diff; Complete Time: 00:26 09/30 00:26 Interpretation: Reviewed. 09/29 23:40 Order name: D-Dimer; Complete Time: 00:26 09/29 23:40 Order name: LFT's; Complete Time: 00:50 09/30 00:51 Interpretation: Normal except: AST 11; GLOB 3.6. 09/29 23:40 Order name: Magnesium; Complete Time: 00:50 cp 09/29 23:40 Order name: NT PRO-BNP; Complete Time: 00:50 cp 09/29 23:40 Order name: PT-INR; Complete Time: 00:26 cp 09/29 23:40 Order name: Troponin HS; Complete Time: 00:50 cp 09/30 00:51 Interpretation: Reviewed. cp 09/29 23:40 Order name: COVID-19 SARS RT PCR; Complete Time: 00:50 cp 09/29 23:41 Order name: Urinalysis W/Microscopic; Complete Time: 01:34 cp 09/30 01:34 Interpretation: Normal except: UCLA Turbid; UBLD 2+; UPH 7.5; HUI Cx 1+; URBC 5-10; cp UESTR 250. 09/29 23:41 Order name: PREGU; Complete Time: 01:34 cp 09/29 23:40 Order name: XRAY Chest (1 view) cp 09/29 23:41 Order name: US Extremity Venous W Compression Chuck cp 09/30 00:27 Order name: CT Chest For PE Angio cp 09/29 23:40 Order name: EKG; Complete Time: 23:41 cp 09/29 23:40 Order name: Cardiac monitoring; Complete Time: 23:54 cp 09/29 23:40 Order name: EKG - Nurse/Tech; Complete Time: 23:54 cp 09/29 23:40 Order name: IV Saline Lock; Complete Time: 00:03 cp 09/29 23:40 Order name: Labs collected and sent; Complete Time: 00:03 cp 09/29 23:40 Order name: O2 Per Protocol; Complete Time: 23:54 cp 09/29 23:40 Order name: O2 Sat Monitoring; Complete Time: 23:54 cp EC/17 23:47 Rate is 69 beats/min. Rhythm is regular. [place] interval is normal. QRS interval is normal. cp QT interval is normal. T waves are Inverted in leads III, aVR. Interpreted by me. Reviewed by me. Administered Medications: 23:48 Drug: Albuterol Inhalation 2.5 mg Route: Inhalation; aa9 23:48 Drug: Ipratropium Inhalation Aerosol 0.5 mg Route: Inhalation; aa9 09/30 00:47 Drug: MethylPrednisoLONE IVP 125 mg Route: IVP; Site: right antecubital; aa9 03:11 Follow up: Response: No adverse reaction kd3 00:56 Drug: Ketorolac IVP 15 mg Route: IVP; Site: right antecubital; aa9 03:10 Follow up: Response: No adverse reaction; Pain is decreased kd3 Disposition Summary: 09/30/22 03:05 Discharge Ordered Location: Home cp Problem: new cp Symptoms: have improved cp Condition: Stable cp Diagnosis - Chest pain, unspecified cp - Shortness of breath cp Followup: cp - With: Private Physician - When: 2 - 3 days - Reason: Recheck today's complaints Discharge Instructions: - Discharge Summary Sheet cp - Nonspecific Chest Pain, Adult cp - Shortness of Breath, Adult cp Forms: - Medication Reconciliation Form cp - Thank You Letter cp - Antibiotic Education cp - Prescription Opioid Use cp Prescriptions: - albuterol sulfate 90 mcg/actuation Inhalation HFA Aerosol Inhaler - inhale 2 inhalation by INHALATION route every 4 to 6 hours as needed for cp shortness of breath; 1 unit; Refills: 0, Product Selection Permitted - Medrol (Terry) 4 mg Oral Tablets, Dose Pack - take 1 tablet by ORAL route as directed - follow package instructions; 1 cp packet; Refills: 0, Product Selection Permitted Signatures: Dispatcher [employer] EDJose Francisco Power PA PA cp Sabino Colón RN RN as6 Fina Moran RN RN aa9 Pam Beach RN kd3
[2022-09-30 03:34] VITALS: TEMP 97.8
[2022-09-30 03:49] VITALS: O2SAT 97
[2022-09-30 03:50] VITALS: BP 120/86
--- NOTE | 2022-09-30 11:21 | EKG ---
Test Date: 2022-09-29 Test Time: 23:41:20 Tobacco Dipper: WM MEASUREMENT RESULTS: Intervals: Rate: 69 MN: 94 QRSD: 92 QT: 408 QTc: 437 [place]: P: 29 MN: 94 QRS: -13 T: 11 INTERPRETIVE STATEMENTS: Sinus rhythm with sinus arrhythmia with short MN Otherwise normal ECG No previous ECG available for comparison Electronically Signed On 09-30-22 11:19:59 CDT by Freddie Rajan
--- NOTE | 2022-09-30 13:38 | RAD REPORT ---
EXAM DESCRIPTION: CT - Chest For Pe Angio - 09/30/2022 5:12 am CLINICAL HISTORY: SOB TECHNIQUE: Axial computed tomographic angiography images of the chest with intravenous contrast. S agittal and coronal reformatted images were created and reviewed. This CT exam was performed using one or more of the following dose reduction techniques: automated exposure control, adjustment of t he mA and/or kV according to patient size, and/or use of iterative reconstruction technique. MIP reconstructed images were created and reviewed. COMPARISON: No relevant prior studies available. FINDINGS: Pulmonary arteries: Unremarkable. No pulmonary arterial filling defects. 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 No thoracic aortic aneurysm. Lungs: Unremarkable. No mass. No consolidation. Pleural space: Unremarkable. No significant effusion. No pneumothorax. Heart: Unremarkable. No cardiomegaly. No significant pericardial effusion. No evidence of RV dysfunction. Bones/joints: No acute fracture. No dislocation. Soft tissues: Unremarkable. Lymph nodes: Unremarkable. No enlarged lymph nodes. IMPRESSION: 1. No pulmonary embolic disease. 2. No focal infiltrate. Electronically signed by: Mary Jo Lunsford MD 09/30/2022 2:45 AM CDT Due to temporary technical issues with the PACS/Fluency reporting system, reports are being signed by the in house radiologists without review as a courtesy to insure prompt reporting. The interpreting radiologist is fully responsible for the content of the report.
--- NOTE | 2022-09-30 18:33 | RAD REPORT ---
EXAM DESCRIPTION: RAD - Chest Single View - 09/30/2022 12:01 am CLINICAL HISTORY: The patient is 27 years old and is Female; SOB TECHNIQUE: Frontal view of the chest. COMPARISON: No relevant prior studies available. FINDINGS: Lungs: Mildly prominent interstitial markings. No consolidation. Pleural space: Unremarkable. No pneumothorax. Heart: Unremarkable. Mediastinum: Unremarkable. Bones/joints: Unremarkable. IMPRESSION: Mildly prominent interstitial markings. No consolidation. Electronically signed by: Pepe Vazquez MD 09/30/2022 12:15 AM CDT Due to temporary technical issues with the PACS/Fluency reporting system, reports are being signed by the in house radiologists without review as a courtesy to insure prompt reporting. The interpreting radiologist is fully responsible for the content of the report.
--- NOTE | 2022-09-30 18:43 | RAD REPORT ---
EXAM DESCRIPTION: US - Extrem Venous W Compress Chuck - 09/30/2022 12:31 am CLINICAL HISTORY: The patient is 27 years old and is Female; PAIN TECHNIQUE: Real-time duplex ultrasound scan of the bilateral lower extremity veins integrating B-mod e two-dimensional vascular structure, Doppler spectral analysis, color flow Doppler imaging and compr ession. COMPARISON: No relevant prior studies available. FINDINGS: Right deep veins: Unremarkable. No DVT in the visualized common femoral, femoral, or p opliteal veins. The veins demonstrate normal color flow, are normally compressible where visualized , with normal phasic flow and/or augmentation response. Left deep veins: Unremarkable. No DVT in the visualized common femoral, femoral, or popliteal v eins. The veins demonstrate normal color flow, are normally compressible where visualized, with nor mal phasic flow and/or augmentation response. Soft tissues: No acute findings. IMPRESSION: No evidence of DVT in the bilateral lower extremity veins. Electronically signed by: Pepe Vazquez MD 09/30/2022 12:40 AM CDT Due to temporary technical issues with the PACS/Fluency reporting system, reports are being signed by the in house radiologists without review as a courtesy to insure prompt reporting. The interpreting radiologist is fully responsible for the content of the report.
== END 2022-09-30 03:19 | disposition home or self-care (01) ==
LOC: ER 23:25
DX: R07.9 Chest pain, unspecified (principal); R06.02 Shortness of breath
CPT/HCPCS: 36415; 71045; 71275; 80048; 80076; 81001; 81025; 83735; 83880; 84484; 85025; 85379; 85610; 93005; 93970; 96374; 96375; 99285; J2930; J7613; J7644; Q9967; U0003